=== PATIENT | male | born 1990 | race Caucasian/White ===

== ENCOUNTER 2021-01-31 21:04 | Emergency (ER) | payer OTHER, SELFPAY ==
[2021-01-31 21:07] VITALS: BP 121/73; PULSE 68; RESP 15; TEMP 36.4; O2SAT 100; BMI 40.4
[2021-01-31 21:40] VITALS: BP 121/73; PULSE 68; RESP 15; TEMP 36.4; O2SAT 100
[2021-01-31] MEDS: 0.9% Normal Saline 1,000 ML 1000 ML IV (21:45)
[2021-01-31] MEDS: Loperamide 2 MG Capsule 4 MG PO (21:45)
[2021-01-31] MEDS: Ondansetron 4 MG/2 ML Vial IV (21:45)
[2021-01-31 21:55] VITALS: BP 121/63; BP 129/89; BP 137/72; PULSE 66; PULSE 80; PULSE 81
[2021-01-31 21:56] LABS: Absolute Lymphocyte Count 3.17 X10^3/uL (0.83-4.51); Absolute Neutrophil Count 4.1 X10^3/uL (2.0-7.7); Basophil# 0.07 X10^3/uL; Basophil% 0.9 % (0-1); Eosinophil# 0.14 X10^3/uL; Eosinophils% 1.7 % (0-5); Hematocrit 45.3 % (40-54); Hemoglobin 15.3 g/dL (13.0-16.5); Lymphocyte # 3.17 X10^3/ul (0.83-4.51); Lymphocyte % 39.4 % (19-41); Mean Corp Hgb Conc 33.8 g/dL (32-36); Mean Corpuscular Hgb 28.5 pg (27.0-32.0); Mean Corpuscular Volume 84.4 fL (80-94); Mean Platelet Vol. 10.9 fl (6.2-12.0); Monocyte# 0.55 X10^3/uL; Monocyte% 6.8 % (0-10); NRBC Flagged by Analyzer 0 % (0-5); Neutrophil # 4.11 X10^3/uL (2.7-7.7); Neutrophil % 51.1 % (47-70); Platelet Count 257 K/mm3 (150-450); RBC Distribution Width CV 12.9 % (11.6-14.6); RBC Distribution Width SD 39.6 fl (35.1-43.9); Red Blood Count 5.37 M/mm3 (4.6-6.2); White Blood Count 8.1 K/mm3 (4.4-11.0)
[2021-01-31 22:14] LABS: Anion Gap 7 (5-15); BUN 11 mg/dL (7-18); BUN/Creat Ratio 12.1 RATIO (10-20); Calcium,Total 8.7 mg/dL (8.5-10.1); Chloride 106 mmol/L (98-107); Creatinine, Serum 0.91 mg/dL (0.70-1.30); EST Glomerular Filtration Rate 105 mL/min (>60); Est Glom Filt Rate - Afr Amer 127 mL/min (>60); Estimated Creatinine Clearance 116.92 ml/min; Glucose 219 mg/dL (74-106); Potassium 3.7 mmol/L (3.5-5.1); Sodium Level 137 mmol/L (136-145)
--- NOTE | 2021-01-31 22:36 | EDS_ITS ---
HPI HPI - GI History of Present Illness Chief Complaint: Abd Pain Informant: patient Abdominal Pain/Flank Pain Onset: Today Context: Sudden Onset Timing: Continuous (Abdominal discomfort is continuous and colicky and lower quadrants) and Intermittent (The vomiting and diarrhea are intermittent.) Quality: Cramping Location: RLQ and LLQ Current Severity: Mild Maximum Severity: Severe Worsened by: - (Bowel movement) Relieved by: Nothing Nausea/Vomiting/Emesis GI Symptom: Positive for Nausea and Vomiting (5 times since this morning) Onset: Today Diarrhea/Melena/Hematochezia GI Symptom: Positive for Diarrhea; Negative for Melena and Hematochezia Onset: Today Stool Quality: Positive for Loose and Watery Severity: Severe Associated Symptoms Associated Symptoms: Negative for Dysuria, Frequency and Hematuria Narrative Narrative: It is a 30-year-old obese male with history of IBS and diabetes. He has not taken any oral medication or insulin for 4 years. He states his blood sugars were as high as 500. He presently denies blurred vision. He denies polyuria, polydipsia or nocturia. He does feel thirsty and dry mouth. He does report orthostatic symptoms. He has had no ill contacts. He has no upper respiratory symptoms. He has had no contact with anyone known or diagnosed with COVID-19. He denies black or maroon-colored diarrhea. Denies mucus in his stool. He denied blood or coffee grounds in his emesis. Prior similar symptoms: No Recent Illness/Hospitalization: No [facility] Medical History Diabetes GERD (gastroesophageal reflux disease) Irritable bowel Home Medications dicyclomine 20 mg PO TIDAC #20 capsule 01/31/21 [Rx Last Taken Unknown] loperamide [Imodium A-D] 2 mg PO Q4H PRN #10 cap 01/31/21 [Rx Last Taken Unknown] metformin 500 mg PO BID #60 tab 01/31/21 [Rx Last Taken Unknown] ondansetron 4 mg PO Q8H PRN PRN #10 tab 01/31/21 [Rx Last Taken Unknown] Allergy/AdvReac Type Severity Reaction Status Date / Time amoxicillin Allergy Anaphylaxis Verified 01/31/21 21:06 clavulanic acid Allergy Anaphylaxis Verified 01/31/21 21:06 [From Augmentin] iodine Allergy Rash Verified 01/31/21 21:06 Penicillins Allergy Anaphylaxis Verified 01/31/21 21:06 Surgical History History of tonsillectomy and adenoidectomy Social History (Updated 01/31/21 @ 22:[address] Raymond Hernandez MD) Smoking Status: Never smoker alcohol intake: current alcohol intake frequency: a few times a month substance use type: does not use ROS ROS ED Constitutional Constitutional ED: Denies chills, fever(s), subjective, sweats or weight loss ENT ENT ED: Denies ear pain, rhinorrhea or sore throat Cardiovascular Cardiovascular: Denies chest pain, palpitations or racing heartbeat Respiratory/Chest Respiratory/Chest: Denies cough, dyspnea or dyspnea on exertion Gastrointestinal Gastrointestinal: Reports abdominal pain, diarrhea, nausea and vomiting; Denies constipation or melena Genitourinary Genitourinary ED: Denies dysuria, hematuria or urinary frequency Musculoskeletal Musculoskeletal: Denies arthralgias, back pain, myalgias or neck pain Integumentary Denies rash Neurologic Neurologic: Denies headache(s), paresthesias or weakness Endocrine Endocrinology: Denies polydipsia, polyphagia or polyuria Hematologic/Lymphatic Hematologic/Lymphatic: Denies easy bleeding or easy bruising EXAM Physical Exam Const Vital Signs: 01/31/21 21:07 01/31/21 21:40 01/31/21 21:55 Temperature 97.6 F L 97.6 F L Temperature Source Temporal Temporal Pulse Rate 68 68 Pulse Rate [Lying] 66 Pulse Rate [Sitting] 81 Pulse Rate [Standing] 80 Respiratory Rate 15 15 Blood Pressure 121/73 H 121/73 H Blood Pressure [Lying] 121/63 H Blood Pressure [Sitting] 129/89 H Blood Pressure [Standing] 137/72 H Blood Pressure Mean 89 89 Blood Pressure Mean [Lying] 82 Blood Pressure Mean [Sitting] 102 Blood Pressure Mean [Standing] 93 Pulse Ox 100 100 Oxygen Delivery Method Room Air Room Air HEENT Reports TM's clear and dry mucous membranes normocephalic Tympanic Membrane ED: Yes TM's clear Mouth ED: Yes dry mucous membranes Mouth: dry mucous membranes Eyes PERRL and EOMs intact bilaterally General Eye ED: Negative for pale conjunctiva or scleral icterus Neck no lymphadenopathy, supple and no JVD Resp normal respiratory effort and clear to auscultation bilaterally Cardio regular rate, regular rhythm, S1 normal heart sound, S2 normal heart sound and no murmurs GI non-distended and no masses Auscultation: hyperactive bowel sounds Palpation: soft and tender other (Diffusely greater right and left lower quadrant.); Negative for guarding, rigid, hepatomegaly or splenomegaly Back/Spine no CVA tenderness Lumbar Spine / Lower Back: Negative for lumbar spinal tenderness Extremity full ROM General Extremety ED: Negative for edema or tenderness General Extremity: Negative for edema Neuro CN's II-XII intact bilaterally and no sensory deficits noted Sensorium / Orientation: alert, oriented to person and oriented to place Motor Exam: strength 5/5 throughout Psych mental status grossly normal Skin no wounds Lesions: no lesions Rashes: no rashes MDM MDM MDM Narrative Medical decision making narrative: Medically patient is dehydrated. Will order 1 L of normal saline. He was treated with Zofran for his nausea and vomiting and Imodium for his diarrhea. Since he is diabetic base of metabolic panel was obtained to assess glucose and more importantly CO2 and anion gap as well as electrolytes. CBC to assess white count and differential. Lab Data Labs: Laboratory Results - last 24 hr 01/31/21 01/31/21 21:40 21:40 WBC 8.1 RBC 5.37 Hgb 15.3 Hct 45.3 MCV 84.4 MCH 28.5 MCHC 33.8 RDW Std Deviation 39.6 RDW Coeff of Vimal 12.9 Plt Count 257 MPV 10.9 Immature Gran % (Auto) 0.100 Neut % (Auto) 51.1 Lymph % (Auto) 39.4 [place] % (Auto) 6.8 Eos % (Auto) 1.7 Baso % (Auto) 0.9 Absolute Neuts (auto) 4.1 Absolute Lymphs (auto) 3.17 Nucleated RBC % 0 Sodium 137 Potassium 3.7 Chloride 106 Carbon Dioxide 24.0 Anion Gap 7 BUN 11 Creatinine 0.91 Estim Creat Clear Calc 116.92 Est GFR (MDRD) Af Amer 127 Est GFR (MDRD) Non-Af 105 BUN/Creatinine Ratio 12.1 Glucose 219 H Calcium 8.7 Treatment and Re-Evaluation Comments:: Patient was reassessed at 2300. He passed p.o. challenge. He was informed of his laboratory results. He was given option to have his prescriptions filled at the hospital. States is not have his wallet with him and unable to pay for any prescriptions. Patient was discharged home with appropriate home-going instructions. He reports he feels better. Discharge Plan Triage Chief Complaint: Abd Pain ED Provider: Raymond Hernandez Dx/Rx/DC Orders Clinical Impression: Abdominal pain, vomiting, and diarrhea, Dehydration, mild, Hyperglycemia due to type 2 diabetes mellitus Instructions: ED Diabetic Hyperglycemia, ED Diet: Diabetes, ED Vomiting and Diarrhea ... Prescriptions: New ondansetron [ondansetron] 4 MG tablet 4 mg PO Q8H PRN PRN (Reason: Nausea) Qty: 10 RF: 0 dicyclomine 10 MG capsule 20 mg PO TIDAC Qty: 20 RF: 0 loperamide [Imodium A-D] 2 mg capsule 2 mg PO Q4H PRN (Reason: loose stool) Qty: 10 RF: 0 metformin 500 mg tablet 500 mg PO BID Qty: 60 RF: 0 Primary Care Provider: Care Physician,No Primary Referrals: Carly Olivarez [NON-STAFF] - 3-5 Days Care Physician,No Primary [Primary Care Provider] - Activity Restrictions/Additional Instructions: Mr. Mya Ovalles was seen and evaluated the patient on January 31. Please excuse him from work for January 31 and February 01.
[2021-01-31 23:34] VITALS: BP 137/72; PULSE 80; RESP 18; O2SAT 97
== END 2021-01-31 23:35 | disposition home or self-care (01) ==
LOC: ED 21:56
PROVIDERS: Emergency Provider Emergency Medicine
DX: R10.31 Right lower quadrant pain (principal); R10.32 Left lower quadrant pain; E86.0 Dehydration; E11.65 Type 2 diabetes mellitus with hyperglycemia; R11.2 Nausea with vomiting, unspecified; R19.7 Diarrhea, unspecified; K58.9 Irritable bowel syndrome, unspecified; K21.9 Gastro-esophageal reflux disease without esophagitis; E66.9 Obesity, unspecified; Z79.84 Long term (current) use of oral hypoglycemic drugs; Z79.899 Other long term (current) drug therapy
CPT/HCPCS: 80048; 85025; 96361; 96374; 99284; J7030; J2405

== ENCOUNTER 2021-03-03 11:34 | Emergency (ER) | payer SELFPAY ==
[2021-03-03 11:35] VITALS: BP 161/85; PULSE 102; RESP 16; TEMP 36.4; O2SAT 97; BMI 41.0
--- NOTE | 2021-03-03 11:44 | EDS_ITS ---
HPI History of Present Illness Chief Complaint: Nausea/Vomiting Informant: patient Onset/Context/Timing Onset: Today Context: Sudden Onset Timing: Continuous Current Severity: Moderate Maximum Severity: Moderate Narrative Narrative: The patient is a 30-year-old male with medical history significant for [id number] diabetes, irritable bowel syndrome, who presents to the emergency department with facial flushing, nausea, and vomiting. The patient states he was in his normal state of health. He states he was going to the grocery store. He states that he had hiccups. He states he suddenly got nauseated felt like it to vomit. He states he vomited multiple times forcefully. Shortly thereafter, he noticed red spots under his eyes and his face felt flushed. He denies chest pain or shortness of breath. He states he never had any like this before. Prior similar symptoms: No Recent Illness/Hospitalization: [facility] Medical History Diabetes GERD (gastroesophageal reflux disease) Irritable bowel Home Medications dicyclomine 20 mg PO TIDAC #20 capsule 01/31/21 [Rx Last Taken Unknown] glipizide 5 mg PO BID #60 tab 01/31/21 [Rx Last Taken Unknown] loperamide [Imodium A-D] 2 mg PO Q4H PRN #10 cap 01/31/21 [Rx Last Taken Unknown] metformin 500 mg PO BID #60 tab 01/31/21 [Rx Last Taken Unknown] ondansetron 4 mg PO Q8H PRN PRN #10 tab 01/31/21 [Rx Last Taken Unknown] ondansetron 4 mg PO Q8H PRN PRN #10 tab 03/03/21 [Rx Last Taken Unknown] Allergy/AdvReac Type Severity Reaction Status Date / Time amoxicillin Allergy Anaphylaxis Verified 03/03/21 11:37 clavulanic acid Allergy Anaphylaxis Verified 03/03/21 11:37 [From Augmentin] iodine Allergy Rash Verified 03/03/21 11:37 Penicillins Allergy Anaphylaxis Verified 03/03/21 11:37 Surgical History History of tonsillectomy and adenoidectomy Social History Smoking Status: Current every day smoker tobacco type: smokeless tobacco alcohol intake: current alcohol intake frequency: a few times a month substance use type: does not use ROS ROS ED Constitutional Constitutional ED: Denies chills or fever(s) Eyes Eyes: Denies blurry vision or change in vision ENT ENT ED: Denies ear pain or sore throat Cardiovascular Cardiovascular: Denies chest pain or palpitations Respiratory/Chest Respiratory/Chest: Denies cough, dyspnea or dyspnea on exertion Gastrointestinal Gastrointestinal: Reports nausea and vomiting; Denies abdominal pain Genitourinary Genitourinary ED: Denies dysuria or urinary frequency Musculoskeletal Musculoskeletal: Denies arthralgias or myalgias Integumentary Denies rash Neurologic Neurologic: Denies headache(s) or paresthesias Psychiatric Psychiatric: Denies anxiety or depression Endocrine Endocrinology: Denies polydipsia or polyuria Allergic/Immunologic Allergic/Immunologic ED: Denies urticaria EXAM Physical Exam Const Vital Signs: 03/03/21 11:35 Temperature 97.6 F L Temperature Source Temporal Pulse Rate 102 H Respiratory Rate 16 Blood Pressure 161/85 H Blood Pressure Mean 110 Pulse Ox 97 Oxygen Delivery Method Room Air Positive well nourished and well developed General Appearance ED: well developed HEENT Reports normocephalic, head/scalp atraumatic and moist mucous membranes Eyes PERRL and EOMs intact bilaterally Eyes Narrative: Scant petechial hemorrhaging around eyelids. Facial flushing. Neck no lymphadenopathy and supple General: Negative for tenderness Chest Wall inspection of chest normal Resp normal respiratory effort and clear to auscultation bilaterally Cardio regular rate, regular rhythm and no murmurs GI normal to inspection, nondistended, normoactive bowel sounds Palpation: Negative for tender, guarding or rebound tenderness present Back/Spine no CVA tenderness Cervical Spine: Negative for cervical spine tenderness Thoracic Spine / Upper Back: Negative for thoracic spinal tenderness Extremity normal to inspection General Extremety ED: Negative for tenderness Neuro oriented x3 and CN's II-XII intact bilaterally Neuro Narrative: No focal deficits appreciated. Sensorium / Orientation: alert Psych mental status grossly normal Skin no rashes or lesions noted, no wounds and skin turgor normal MDM MDM MDM Narrative Medical decision making narrative: Patient presents with hiccups and then sudden onset nausea and vomiting. He did have some small petechial hemorrhages on the eyelids with facial flushing. He said no chest pain or shortness of breath. I do feel this is likely secondary from the significant pressure with the vomiting. IV was established. Labs were obtained. Labs are unremarkable. Patient was treated with fluids and antiemetics. He is feeling markedly improved. His facial flushing has resolved. I did counseling psychologist him that the small petechiae will resolve. He will be treated with antiemetics. He will be discharged home. Impression 1. Facial petechiae 2. Nausea vomiting Lab Data Attestation: I reviewed the patient's lab results. Labs: Laboratory Results - last 24 hr 03/03/21 03/03/21 11:55 11:55 WBC 8.3 RBC 5.38 Hgb 15.5 Hct 44.8 MCV 83.3 MCH 28.8 MCHC 34.6 RDW Std Deviation 37.9 RDW Coeff of Vimal 12.6 Plt Count 263 MPV 10.6 Immature Gran % (Auto) 0.200 Neut % (Auto) 51.5 Lymph % (Auto) 37.2 [place] % (Auto) 8.2 Eos % (Auto) 2.3 Baso % (Auto) 0.6 Absolute Neuts (auto) 4.3 Absolute Lymphs (auto) 3.08 Nucleated RBC % 0 Sodium 136 Potassium 3.7 Chloride 103 Carbon Dioxide 25.0 Anion Gap 8 BUN 16 Creatinine 0.89 Estim Creat Clear Calc 119.55 Est GFR (MDRD) Af Amer 130 Est GFR (MDRD) Non-Af 107 BUN/Creatinine Ratio 17.9 Glucose 216 H Calcium 8.8 Total Bilirubin 0.50 AST 23 ALT 54 Alkaline Phosphatase 89 Total Protein 7.3 Albumin 3.9 Globulin 3.4 Albumin/Globulin Ratio 1.1 Discharge Plan Triage Chief Complaint: Nausea/Vomiting ED Provider: Nemesio Peters Dx/Rx/DC Orders Instructions: ED Vomiting (Adult) Prescriptions: New ondansetron [ondansetron] 4 MG tablet 4 mg PO Q8H PRN PRN (Reason: Nausea) Qty: 10 RF: 0 No Action ondansetron [ondansetron] 4 MG tablet 4 mg PO Q8H PRN PRN (Reason: Nausea) Qty: 10 RF: 0 dicyclomine 10 MG capsule 20 mg PO TIDAC Qty: 20 RF: 0 loperamide [Imodium A-D] 2 mg capsule 2 mg PO Q4H PRN (Reason: loose stool) Qty: 10 RF: 0 metformin 500 mg tablet 500 mg PO BID Qty: 60 RF: 0 glipizide 5 mg tablet 5 mg PO BID Qty: 60 RF: 0 Primary Care Provider: Care Physician,No Primary Referrals: Care Physician,No Primary [Primary Care Provider] -
[2021-03-03] MEDS: Ondansetron 4 MG/2 ML Vial IV (11:59)
[2021-03-03] MEDS: 0.9% Normal Saline 1,000 ML 1000 ML IV (11:59)
[2021-03-03] MEDS: DiphenhydrAMINE 50 MG/ML Syringe 25 MG IV (11:59)
[2021-03-03 12:04] LABS: Absolute Lymphocyte Count 3.08 X10^3/uL (0.83-4.51); Absolute Neutrophil Count 4.3 X10^3/uL (2.0-7.7); Basophil# 0.05 X10^3/uL; Basophil% 0.6 % (0-1); Eosinophil# 0.19 X10^3/uL; Eosinophils% 2.3 % (0-5); Hematocrit 44.8 % (40-54); Hemoglobin 15.5 g/dL (13.0-16.5); Lymphocyte # 3.08 X10^3/ul (0.83-4.51); Lymphocyte % 37.2 % (19-41); Mean Corp Hgb Conc 34.6 g/dL (32-36); Mean Corpuscular Hgb 28.8 pg (27.0-32.0); Mean Corpuscular Volume 83.3 fL (80-94); Mean Platelet Vol. 10.6 fl (6.2-12.0); Monocyte# 0.68 X10^3/uL; Monocyte% 8.2 % (0-10); NRBC Flagged by Analyzer 0 % (0-5); Neutrophil # 4.25 X10^3/uL (2.7-7.7); Neutrophil % 51.5 % (47-70); Platelet Count 263 K/mm3 (150-450); RBC Distribution Width CV 12.6 % (11.6-14.6); RBC Distribution Width SD 37.9 fl (35.1-43.9); Red Blood Count 5.38 M/mm3 (4.6-6.2); White Blood Count 8.3 K/mm3 (4.4-11.0)
[2021-03-03 12:19] LABS: ALB/GLOB Ratio 1.1 RATIO (0.9-2.4); AST(SGOT) 23 U/L (15-37); Alanine Aminotransfer ALT/SGPT 54 U/L (16-61); Albumin, Serum 3.9 g/dL (3.2-5.0); Alkaline Phosphatase 89 U/L (45-117); Anion Gap 8 (5-15); BUN 16 mg/dL (7-18); BUN/Creat Ratio 17.9 RATIO (10-20); Calcium,Total 8.8 mg/dL (8.5-10.1); Chloride 103 mmol/L (98-107); Creatinine, Serum 0.89 mg/dL (0.70-1.30); EST Glomerular Filtration Rate 107 mL/min (>60); Est Glom Filt Rate - Afr Amer 130 mL/min (>60); Estimated Creatinine Clearance 119.55 ml/min; Globulin 3.4 g/dL (2.2-4.2); Glucose 216 mg/dL (74-106); Potassium 3.7 mmol/L (3.5-5.1); Protein, Total 7.3 g/dL (6.4-8.2); Sodium Level 136 mmol/L (136-145)
[2021-03-03 12:42] VITALS: BP 134/82; PULSE 88; RESP 19; O2SAT 98
== END 2021-03-03 12:44 | disposition home or self-care (01) ==
LOC: ED 12:07
PROVIDERS: Emergency Provider Emergency Medicine
DX: R11.2 Nausea with vomiting, unspecified (principal); R23.3 Spontaneous ecchymoses; R06.6 Hiccough; R23.2 Flushing; K58.9 Irritable bowel syndrome, unspecified; E11.9 Type 2 diabetes mellitus without complications; K21.9 Gastro-esophageal reflux disease without esophagitis; F17.290 Nicotine dependence, other tobacco product, uncomplicated; Z79.84 Long term (current) use of oral hypoglycemic drugs; Z79.899 Other long term (current) drug therapy
CPT/HCPCS: 80053; 85025; 96361; 96374; 96375; 99284; J7030; A4216; J2405